=== PATIENT | male | born 1970 | race Caucasian/White ===

== ENCOUNTER 2016-10-02 15:04 | Emergency (ER) | payer OTHER ==
[~2016-10-02] VITALS: Ht 182.9 cm; Wt 107.0 kg
[~2016-10-02 15:04] MED LIST: CIPR500T4 PO; METR-1 PO; PERC5TAB12 PO; ZOFR4TAB3 SL
[2016-10-02 15:06] VITALS: BP 138/89; PULSE 80; RESP 16; TEMP 98.2; O2SAT 96
[2016-10-02] MEDS ORDERED: ROSU5 PO (15:13)
[2016-10-02] MEDS ORDERED: LISI10TA3 PO (15:13)
[2016-10-02] MEDS ORDERED: ASPI1TAB69 PO (15:15)
--- NOTE | 2016-10-02 15:40 | PD ---
HPI Chief Complaint: Cardiac Complaint Time Seen by Provider: 15:35 Travel History International Travel<30 days: No Contact w/Intl Traveler<30days: No Traveled to known affect area: No History of Present Illness HPI 46-year-old male that presents to the ED for evaluation of palpitations. Per patient is started since yesterday. Per patient he is had episodes like this before where he feels like he her palpitates and per patient he doesn't really have much pain but like an achy feeling. Per patient he doesn't really get short of breath. Per patient this is the first time that it lasted this long. Per patient he feels like his last about almost 12 hours now. Per patient his been trying to drink water as well as walk and see maybe that will be set off on him. Per patient he hasn't. Per patient he comes and goes. He has noted that his heart rate goes up into the 100s. He denies any history of heart disease on himself. He does have a history of hypertension or high cholesterol. He denies any thyroid problems. He denies any dizziness or lightheadedness but does state feeling somewhat weak. Pain does not radiate and stays mainly on the left side of the chest. He has no analytical strategist. He states compliance with medications. He did took an aspirin today thinking this might help. He takes no blood thinners. He does have a family history of heart disease with his father having had a stent at 70 and with his brother having had a stent around his age. He does voice that he did recently travel to open a marked by plane but denies any swelling or shortness of breath. PFSH Past Medical History High Cholesterol: Yes Diminished Hearing: No Hypertension: Yes Tetanus Vaccination: Unknown Past Surgical History Abdominal Surgery: Yes (hernia x 2) Appendectomy: Yes Eye Surgery: Yes (LASIK) Joint Replacement: Yes (left wrist) Other Surgery: Yes (carpal tunnel right, VASECTOMY) Social History Alcohol Use: Yes (2-3 DRINKS PER WEEK) Tobacco Use: No Substance Use: No Allergies-Medications (Allergen,Severity, Reaction): Coded Allergies: No Known Allergies (Unverified , 10/02/16) Reported Meds & Prescriptions Reported Meds & Active Scripts Active Reported Aspirin 81 Mg Tabdr 81 Mg PO DAILY Lisinopril 10 Mg Tab 10 Mg PO DAILY Crestor (Rosuvastatin Calcium) 5 Mg Tab 5 Mg PO EVERY OTHER DAY Review of Systems General / Constitutional: No: Fever, Chills, Weight Gain, Weight Loss, Other Eyes: No: Diploplia, Blurred Vision, Photophobia, Drainage, Redness, Foreign Body Sensation, Pain, Tearing, Blind Spots, Visual changes, Blindness, Other HENT: No: Headaches, Vertigo, Lightheadedness, Sore Throat, Rhinitis, Rhinorrhea, Congestion, Nosebleed, Neck Stiffness, Neck Pain, Masses, Gingival Bleeding, Dental Difficulties, Ear Discharge, Earache, Other Cardiovascular: Positive: Chest Pain or Discomfort, Palpitations, Tachycardia, No: Irregular Rhythm, Diaphoresis, Syncope, Dyspnea on exertion, Varicosities , Edema, Cyanosis, Varicosities, Phlebitis, Claudication, Other Respiratory: No: Cough, Shortness of Breath, Wheezing, Sneezing, Orthopnea, Hemoptysis, Stridor, Night Sweats, Pleuritic Pain, Other Gastrointestinal: No: Nausea, Vomiting, Diarrhea, Abdominal Pain, Hematemesis, Hematochezia, Constipation, Changes in Bowel Habits, Indigestion, Dysphagia, Loss of Appetite, Other Genitourinary: No: Urgency, Frequency, Dysuria, Nocturia, Hematuria, Decreased Urinary Output, Oliguria, Hesitancy, Dribbling, Incontinence, Pelvic Pain, Flank Pain, Dyspareunia, Discharge, Dysmenorrhea, Menorrhagia, Metorrhagia, Vaginal Bleeding, Other Musculoskeletal: No: Myalgias, Arthralgias, Limited ROM, Weakness, Cramping, Edema, Pain, Atrophy, Other Skin: No Rash, No Itching, No Dryness, No Lumps, No Hives, No Change in Pigmentation, No Change in nails, No Alopecia, No Lesions, No Breast Lumps, No Breast Tenderness, No Breast Swelling, No Other Neurologic: No: Weakness, Dizziness, Syncope, Focal Abnormalities, Coordination Problem, Tremor, Ataxia, Headache, Change in Mentation, Slurred Speech, Paresthesia, Incontinence, Seizures, Sensory Disturbance, Other Psychiatric: No: Anxiety, Depression, Suicidal Ideations, Disorder of Thought, Mood Disorder, Substance Abuse, Homicidal Ideation, Other Endocrine: No: Heat Intolerance, Cold Intolerance, Polyuria, Polydipsia, Other Hematologic/Lymphatic: No: Easy Bruising, Lymph Node Enlargement, Other Physical Exam Narrative GENERAL: SKIN: Warm and dry. HEAD: Atraumatic. Normocephalic. EYES: Pupils equal and round. No scleral icterus. No injection or drainage. ENT: No nasal bleeding or discharge. Mucous membranes pink and moist. Tongue is midline. No uvula deviation. NECK: Trachea midline. No JVD. CARDIOVASCULAR: Regular rate and rhythm. No murmurs, S3, S4 noted. RESPIRATORY: No accessory muscle use. Clear to auscultation. Breath sounds equal bilaterally. GASTROINTESTINAL: Abdomen soft, non-tender, nondistended. Hepatic and splenic margins not palpable. MUSCULOSKELETAL: Extremities without clubbing, cyanosis, or edema. No obvious deformities. Full range of motion of the upper and lower extremities bilaterally. 2+ pulses bilaterally. NEUROLOGICAL: Awake and alert. No obvious cranial nerve deficits. Motor grossly within normal limits. Five out of 5 muscle strength in the arms and legs. Normal speech. PSYCHIATRIC: Appropriate mood and affect; insight and judgment normal. Data Data Last Documented VS Vital Signs Date Time Temp Pulse Resp B/P Pulse Ox O2 Delivery O2 Flow Rate FiO2 10/02/16 16:26 71 17 118/65 98 Room Air 10/02/16 15:06 98.2 Orders Electrocardiogram (10/02/16 15:17) Basic Metabolic Panel (Bmp) (10/02/16 15:17) Ckmb (Isoenzyme) Profile (10/02/16 15:17) Complete Blood Count With Diff (10/02/16 15:17) Magnesium (Mg) (10/02/16 15:17) Prothrombin Time / Inr (Pt) (10/02/16 15:17) Act Partial Throm Time (Ptt) (10/02/16 15:17) Troponin I (10/02/16 15:17) Chest, Single Ap (10/02/16 15:17) Ecg Monitoring (10/02/16 15:17) Bilateral Bp Monitoring (10/02/16 15:17) Iv Access Insert/Monitor (10/02/16 15:17) Oximetry (10/02/16 15:17) Metoprolol Tartrate Inj (Lopressor Inj) (10/02/16 15:45) CKMB (10/02/16 15:11) CKMB% (10/02/16 15:11) Thyroid Stimulating Hormone (10/02/16 15:11) Labs Laboratory Tests Test 10/02/16 15:11 White Blood Count 10.5 TH/MM3 Red Blood Count 5.11 MIL/MM3 Hemoglobin 15.1 GM/DL Hematocrit 43.7 % Mean Corpuscular Volume 85.4 FL Mean Corpuscular Hemoglobin 29.6 PG Mean Corpuscular Hemoglobin 34.6 % Concent Red Cell Distribution Width 13.5 % Platelet Count 259 TH/MM3 Mean Platelet Volume 8.2 FL Neutrophils (%) (Auto) 53.9 % Lymphocytes (%) (Auto) 31.5 % Monocytes (%) (Auto) 11.0 % Eosinophils (%) (Auto) 2.8 % Basophils (%) (Auto) 0.8 % Neutrophils # (Auto) 5.6 TH/MM3 Lymphocytes # (Auto) 3.3 TH/MM3 Monocytes # (Auto) 1.2 TH/MM3 Eosinophils # (Auto) 0.3 TH/MM3 Basophils # (Auto) 0.1 TH/MM3 CBC Comment DIFF FINAL Differential Comment Prothrombin Time 11.1 SEC Prothromb Time International 1.0 RATIO Ratio Activated Partial 29.1 SEC Thromboplast Time Sodium Level 143 MEQ/L Potassium Level 4.0 MEQ/L Chloride Level 107 MEQ/L Carbon Dioxide Level 27.9 MEQ/L Anion Gap 8 MEQ/L Blood Urea Nitrogen 13 MG/DL Creatinine 0.98 MG/DL Estimat Glomerular Filtration 82 ML/MIN Rate Random Glucose 100 MG/DL Calcium Level 8.7 MG/DL Magnesium Level 2.3 MG/DL Total Creatine Kinase 138 U/L Creatine Kinase MB 1.4 NG/ML Troponin I LESS THAN 0.02 NG/ML Thyroid Stimulating Hormone 1.160 uIU/ML [address] [place] [address] Medical Decision Making Medical Screen Exam Complete: Yes Emergency Medical Condition: Yes Medical Record Reviewed: Yes Interpretation(s) CBC & BMP Diagram 10/02/16 15:11 TSH is negative. Troponin and CK-MB negative. EKG shows sinus rhythm with no sign of acute ischemia or arrhythmia read by me and attending. Chest x-ray negative for acute disease. Differential Diagnosis Palpitations versus arrhythmia versus coronary disease versus tachyarrhythmia versus atrial fibrillation versus thyroid issue Narrative Course 46-year-old male that presents to the ED for evaluation of palpitations. Patient was properly examined and was found to have signs and symptoms consistent with appears to be possible palpitations. Labs and imaging ordered. My attending Dr. Hilario evaluated the patient with me and agrees with plan. She recommends starting on metoprolol. Labs and imaging showed no sign of acute disease. Patient does have PVCs that seem to be symptomatic for the patient. We will try metoprolol at this time to see maybe this will help with patient's symptoms. We'll recommend close follow with analytical strategist. See ED for any worsening symptoms. Patient agrees with plan. My attending and ice discussed this with the patient and family and they're both agreeable. Diagnosis Primary Impression: Symptomatic PVCs Patient Instructions: General Instructions Additional Instructions: Take medication as prescribed. Follow with PCP. See ED worsening symptoms. Med/Other Pt SpecificInfo: Prescription(s) given Scripts Metoprolol Tartrate 25 Mg Tab12.5 Mg PO BID #60 TAB Ref 0 Prov:Aure Heard MD 10/02/16 Disposition: 01 DISCHARGE HOME Condition: Stable Ricardo Santacruz Oct 02, 2016 15:40
[2016-10-02 15:42] LABS: AUTOMATED NEUTROPHIL # 5.6 TH/MM3 (1.8-7.7); BASOPHIL # 0.1 TH/MM3 (0-0.2); BASOPHIL % 0.8 % (0.0-2.0); EOSINOPHIL # 0.3 TH/MM3 (0-0.4); EOSINOPHIL % 2.8 % (0.0-4.0); HEMATOCRIT 43.7 % (39.0-51.0); HEMO FLAGS DIFF FINAL; LYMPH % 31.5 % (9.0-44.0); LYMPHOCYTE # 3.3 TH/MM3 (1.0-4.8); MEAN CELL VOLUME 85.4 FL (80.0-100.0); MEAN CORPUSCULAR HEMOGLOBIN 29.6 PG (27.0-34.0); MEAN CORPUSCULAR HGB CONC 34.6 % (32.0-36.0); NEUT % 53.9 % (16.0-70.0); PLATELET COUNT 259 TH/MM3 (150-450); RED BLOOD COUNT 5.11 MIL/MM3 (4.50-5.90); RED CELL DISTRIBUTION WIDTH 13.5 % (11.6-17.2); WHITE BLOOD COUNT 10.5 TH/MM3 (4.0-11.0)
[2016-10-02 15:45] VITALS: BP 127/68; PULSE 70; RESP 17; O2SAT 98
[2016-10-02] MEDS ORDERED: METOPROLOL TARTRATE 5 MG/5 ML VIAL IV PUSH ONE (15:45)
--- NOTE | 2016-10-02 15:45 | RADRPT ---
EXAM DATE/TIME: 10/02/2016 15:27 [facility] COMPARISON: CHEST ONE VIEW EMPLOYMED ONLY, April 30, 2015, 14:08. INDICATIONS : Chest pain and abnormal heart rate. MEDICAL HISTORY : None. SURGICAL HISTORY : None. ENCOUNTER: Initial ACUITY: 2 days PAIN SCORE: 4/10 LOCATION: Bilateral chest FINDINGS: A single view of the chest demonstrates the lungs to be symmetrically aerated without evidence of mas s, infiltrate or effusion. The cardiomediastinal contours are unremarkable. Osseous structures are intact. CONCLUSION: No evidence of acute cardiopulmonary disease. Itz Martínez MD on October 02, 2016 at 15:43 Board Certified Radiologist. This report was verified electronically.
--- NOTE | 2016-10-02 15:47 | PD ---
Data Data Last Documented VS Vital Signs Date Time Temp Pulse Resp B/P Pulse Ox O2 Delivery O2 Flow Rate FiO2 10/02/16 15:17 83 19 95 Room Air 10/02/16 15:06 98.2 138/89 Orders Electrocardiogram (10/02/16 15:17) Basic Metabolic Panel (Bmp) (10/02/16 15:17) Ckmb (Isoenzyme) Profile (10/02/16 15:17) Complete Blood Count With Diff (10/02/16 15:17) Magnesium (Mg) (10/02/16 15:17) Prothrombin Time / Inr (Pt) (10/02/16 15:17) Act Partial Throm Time (Ptt) (10/02/16 15:17) Troponin I (10/02/16 15:17) Chest, Single Ap (10/02/16 15:17) Ecg Monitoring (10/02/16 15:17) Bilateral Bp Monitoring (10/02/16 15:17) Iv Access Insert/Monitor (10/02/16 15:17) Oximetry (10/02/16 15:17) Thyroid Stimulating Hormone (10/02/16 15:20) Metoprolol Tartrate Inj (Lopressor Inj) (10/02/16 15:45) Labs Laboratory Tests Test 10/02/16 15:11 White Blood Count 10.5 TH/MM3 Red Blood Count 5.11 MIL/MM3 Hemoglobin 15.1 GM/DL Hematocrit 43.7 % Mean Corpuscular Volume 85.4 FL Mean Corpuscular Hemoglobin 29.6 PG Mean Corpuscular Hemoglobin 34.6 % Concent Red Cell Distribution Width 13.5 % Platelet Count 259 TH/MM3 Mean Platelet Volume 8.2 FL Neutrophils (%) (Auto) 53.9 % Lymphocytes (%) (Auto) 31.5 % Monocytes (%) (Auto) 11.0 % Eosinophils (%) (Auto) 2.8 % Basophils (%) (Auto) 0.8 % Neutrophils # (Auto) 5.6 TH/MM3 Lymphocytes # (Auto) 3.3 TH/MM3 Monocytes # (Auto) 1.2 TH/MM3 Eosinophils # (Auto) 0.3 TH/MM3 Basophils # (Auto) 0.1 TH/MM3 CBC Comment DIFF FINAL Differential Comment MDM Supervised Visit with DUSTIN: Yes Differential Diagnosis I, Dr. Heard, have reviewed the advance practice practioner's documentation and am in agreement, met with the patient face to face, made the diagnosis, and the medical decision making was done by me. *My assessment and Findings: 46-year-old male with history of HTN, HLD and familial history of CAD here with complaint of palpitations. History of same, but more frequent over the last 12 hours. No associated pain, shortness of breath, lightheadedness. Denies any history of arrhythmia or thyroid abnormality. On examination regular rate and rhythm, clear to auscultation bilaterally. 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 He denies any new stimulants, caffeine abuse, etc. Differential includes arrhythmia, electrolyte abnormality, symptomatic anemia, hyperthyroidism less likely ACS. Twelve-lead EKG shows sinus rhythm with left axis deviation and right bundle branch block, patient states that this is baseline for him. Will obtain laboratory workup, try low-dose metoprolol to see if this improves his PACs/PVCs and discharged home if negative. Aure Heard MD Oct 02, 2016 15:47
[2016-10-02 16:04] LABS: ANION GAP 8 MEQ/L (5-15); BICARBONATE 27.9 MEQ/L (21.0-32.0); BLOOD UREA NITROGEN 13 MG/DL (7-18); CHLORIDE 107 MEQ/L (98-107); GLOMERULAR FILTRATION RATE 82 ML/MIN (>89); MAGNESIUM 2.3 MG/DL (1.5-2.5); SODIUM (NA) 143 MEQ/L (136-145)
[2016-10-02 16:08] LABS: CREATINE KINASE 138 U/L (39-308)
[2016-10-02 16:15] LABS: APTT (PATIENT) 29.1 SEC (24.3-30.1); PROTHROMBIN TIME - PATIENT 11.1 SEC (9.8-11.6)
[2016-10-02 16:26] VITALS: BP 118/65; PULSE 71; RESP 17; O2SAT 98
[2016-10-02 16:31] LABS: CKMB 1.4 NG/ML (0.5-3.6)
[2016-10-02] MEDS ORDERED: METO25TA3 PO (16:39)
[2016-10-02 16:45] VITALS: BP 121/77; TEMP 97.8
--- NOTE | 2016-10-03 14:55 | EKG ---
Date Performed: 10/02/2016 Time Performed: 15:15:38 PTAGE: 46 years EKG: Sinus rhythm MARKED LEFT AXIS DEVIATION RIGHT BUNDLE BRANCH BLOCK ABNORMAL ECG INTERPRETATION BASED ON A DEFAULT AGE OF 38 YEARS NO PREVIOUS TRACING DOCTOR: Sara Billingsley Interpretating Date/Time 10/03/2016 14:49:38
== END 2016-10-02 16:45 | disposition home or self-care (01) ==
LOC: NEPE 15:04
DX: I49.3 Ventricular premature depolarization (principal); R94.31 Abnormal electrocardiogram [ECG] [EKG]; I10 Essential (primary) hypertension; E78.00 Pure hypercholesterolemia, unspecified
CPT/HCPCS: 71010; 80048; 82550; 82552; 83735; 84443; 84484; 85025; 85610; 85730; 93005; 96374

== ENCOUNTER 2017-10-25 14:03 | Emergency (ER) | payer OTHER ==
[~2017-10-25] VITALS: Ht 182.9 cm; Wt 100.0 kg
[~2017-10-25 14:03] MED LIST changes: +ASPI1TAB69 PO; -CIPR500T4 PO; +LISI10TA3 PO; +METO25TA3 PO; -METR-1 PO; -PERC5TAB12 PO; +ROSU5 PO; -ZOFR4TAB3 SL
[2017-10-25 14:06] VITALS: BP 134/74; PULSE 84; RESP 14; TEMP 97.7; O2SAT 99
[2017-10-25] MEDS ORDERED: SODIUM CHLOR 0.9% 1000 ML INJ 1,000 ML IV SCH (14:31)
[2017-10-25] MEDS ORDERED: metroNIDAZOLE 500 MG INJ 100 ML IV ONE (14:45)
[2017-10-25] MEDS ORDERED: KETOROLAC TROMETHAMINE 30 MG/ML (IVP) VIAL IVP ONE (14:45)
[2017-10-25] MEDS ORDERED: ONDANSETRON HCL 4 MG/2 ML VIAL IVP ONE (14:45)
[2017-10-25] MEDS ORDERED: SODIUM CHLORIDE 0.9% FLUSH 10 ML FLUSH IV FLUSH PRN (14:45)
[2017-10-25] MEDS ORDERED: CIPROFLOXACIN 400 MG PREMIX 200 ML IV ONE (14:45)
[2017-10-25] MEDS ORDERED: METR-1 PO (14:49)
[2017-10-25] MEDS ORDERED: CIPR-9 PO (14:49)
--- NOTE | 2017-10-25 14:50 | PD ---
HPI Chief Complaint: Abdominal Pain Time Seen by Provider: 14:27 Travel History International Travel<30 days: No Contact w/Intl Traveler<30days: No Traveled to known affect area: No History of Present Illness HPI The patient is 47 years old. He complains of left lower quadrant pain and nausea. Episodes of diverticulitis in the past that felt similar. No diarrhea. No fever. Pain severity is moderate. It's worse with palpation. PFSH Past Medical History Cardiovascular Problems: Yes (HTN, Cholestrol) High Cholesterol: Yes Diminished Hearing: No Hypertension: Yes ?: Not Past Surgical History Abdominal Surgery: Yes (hernia x 2) Appendectomy: Yes Eye Surgery: Yes (LASIK) Joint Replacement: Yes (left wrist) Other Surgery: Yes (carpal tunnel right, VASECTOMY) Social History Alcohol Use: Yes (2-3 DRINKS PER WEEK) Tobacco Use: No Substance Use: No Allergies-Medications (Allergen,Severity, Reaction): Coded Allergies: No Known Allergies (Verified Adverse Reaction, Unknown, 10/25/17) Reported Meds & Prescriptions Reported Meds & Active Scripts Active Flagyl (Metronidazole) 500 Mg Tab 500 Mg PO TID 7 Days Cipro (Ciprofloxacin HCl) 500 Mg Tab 500 Mg PO BID 7 Days Metoprolol Tartrate 25 Mg Tab 12.5 Mg PO BID Reported Aspirin 81 Mg Tabdr 81 Mg PO DAILY Lisinopril 10 Mg Tab 10 Mg PO DAILY Crestor (Rosuvastatin Calcium) 5 Mg Tab 5 Mg PO EVERY OTHER DAY Review of Systems Except as stated in HPI: all other systems reviewed are Neg General / Constitutional: No: Fever Physical Exam Narrative GENERAL: 47-year-old male well-nourished well-developed no acute distress Vital Signs Date Time Temp Pulse Resp B/P (MAP) Pulse Ox O2 Delivery O2 Flow Rate FiO2 10/25/17 14:06 97.7 84 14 134/74 (94) 99 SKIN: Warm and dry. HEAD: Atraumatic. Normocephalic. EYES: Pupils equal and round. No scleral icterus. No injection or drainage. ENT: No nasal bleeding or discharge. Mucous membranes pink and moist. NECK: Trachea midline. No JVD. CARDIOVASCULAR: Regular rate and rhythm. RESPIRATORY: No accessory muscle use. Clear to auscultation. Breath sounds equal bilaterally. GASTROINTESTINAL: Soft. Tenderness in the left abdomen.. MUSCULOSKELETAL: Extremities without clubbing, cyanosis, or edema. No obvious deformities. NEUROLOGICAL: Awake and alert. No obvious cranial nerve deficits. Motor grossly within normal limits. Five out of 5 muscle strength in the arms and legs. Normal speech. PSYCHIATRIC: Appropriate mood and affect; insight and judgment normal. Data Data Last Documented VS Vital Signs Date Time Temp Pulse Resp B/P (MAP) Pulse Ox O2 Delivery O2 Flow Rate FiO2 10/25/17 14:06 97.7 84 14 134/74 (94) 99 Orders Orders Iv Access Insert/Monitor (10/25/17 14:31) Ecg Monitoring (10/25/17 14:31) Oximetry (10/25/17 14:31) Ondansetron Inj (Zofran Inj) (10/25/17 14:45) Ciprofloxacin 400 Mg Premix (Cipro 400 M (10/25/17 14:45) Metronidazole 500 Mg Inj (Flagyl 500 Mg (10/25/17 14:45) Sodium Chlor 0.9% 1000 Ml Inj (Ns 1000 M (10/25/17 14:31) Sodium Chloride 0.9% Flush (Ns Flush) (10/25/17 14:45) Ketorolac Inj (Toradol Inj) (10/25/17 14:45) MDM Medical Decision Making Medical Screen Exam Complete: Yes Emergency Medical Condition: Yes Medical Record Reviewed: Yes Differential Diagnosis Gastritis, pancreatitis, appendicitis, acute cholecystitis, ascending cholangitis, AAA, perforated viscous, mesenteric ischemia, hepatitis, cystitis, hydronephrosis/hydroureter/nephroureter calculus, mesenteric adenitis, biliary colic Narrative Course Patient has symptoms consistent with diverticulitis. IV fluids Cipro Flagyl given. Excellent pain control achieved with Toradol. The patient will go home with Cipro Flagyl prescription Zofran prescription. Follow-up with primary care. Diagnosis Primary Impression: Diverticulitis Referrals: Primary Care Physician call for appointment Med/Other Pt SpecificInfo: Prescription(s) given Scripts Metronidazole (Flagyl) 500 Mg Tab 500 MG PO TID for Infection for 7 Days, TAB 0 Refills Prov: Benji Wilcox MD 10/25/17 Ciprofloxacin (Cipro) 500 Mg Tab 500 MG PO BID for Infection for 7 Days, #14 TAB 0 Refills Prov: Benji Wilcox MD 10/25/17 Disposition: 01 DISCHARGE HOME Condition: Stable Benji Wilcox MD Oct 25, 2017 14:50
[2017-10-25] MEDS ORDERED: ZOFR4TAB3 SL (17:00)
== END 2017-10-25 17:30 | disposition home or self-care (01) ==
LOC: NEPD 14:03
DX: K57.92 Diverticulitis of intestine, part unspecified, without perforation or abscess without bleeding (principal); E78.00 Pure hypercholesterolemia, unspecified; I10 Essential (primary) hypertension
CPT/HCPCS: 96365; 96375; 99284; J0744; J1885; J2405; J7030